=== PATIENT | male | born 1980 | race Caucasian/White ===

== ENCOUNTER 2017-04-03 20:31 | Emergency (ER) | payer SELFPAY ==
[~2017-04-03] VITALS: Ht 170.2 cm; Wt 118.0 kg
[~2017-04-03 20:31] MED LIST: GABAPENTIN600 MG PO; INDERAL 40MG TA40 MG PO; LISINOP/HCTZ1 TA2 PO; NAPROSYN500 MG PO
[2017-04-03 21:26] LABS: URINE BILIRUBIN - DIPSTICK NEGATIVE (NEGATIVE); URINE BLOOD DIPSTICK NEGATIVE (NEGATIVE); URINE CLARITY CLEAR; URINE COLOR YELLOW; URINE GLUCOSE - DIPSTICK NEGATIVE (NEGATIVE); URINE KETONE NEGATIVE (NEGATIVE); URINE LEUK ESTERASE NEGATIVE (NEGATIVE); URINE NITRITE - DIPSTICK NEGATIVE (Negative); URINE PH 5.5 (4.5-8.0); URINE PROTEIN - DIPSTICK TRACE mg/dL (NEG-TRACE); URINE SPECIFIC GRAVITY >=1.030; URINE UROBILINOGEN - DIPSTICK 0.2 E.U./dL (0.2)
[2017-04-03 21:27] LABS: HEMATOCRIT 47.6 % (39.0-50.0); IMMATURE GRANULOCYTES 0.5 % (0.0-1.0); MEAN CELL VOLUME 90.5 fL CALC (80.0-100.0); MEAN CORPUSCULAR HGB 30.4 pG CALC (26.0-32.0); MEAN CORPUSCULAR HGB CONC 33.6 g/L CALC (32.0-36.0); NEUT# 6.98 thou/uL (1.82-7.42); RED BLOOD COUNT 5.26 mill/uL (4.70-6.10); RED CELL DISTRI WIDTH 13.2 % (11.5-15.5)
[2017-04-03 22:02] LABS: ALBUMIN 4.1 g/dL (3.2-5.0); ALKALINE PHOSPHATASE 119 u/l (38-126); AMYLASE 33 u/l (30-110); ANION GAP 17 (6-22 (CALC)); BILIRUBIN, TOTAL 0.4 mg/dL (0.0-1.4); BUN 10 mg/dL (9-20); BUN/CREATININE RATIO 10 (12-20 (CALC)); CALCIUM 9.6 mg/dL (8.4-10.2); CARBON DIOXIDE 26 mmol/l (22-30); CHLORIDE 108 mmol/l (95-108); CREATININE 0.9 mg/dL (0.7-1.3); GFR > 60 ML/MIN (>=60 (CALC)); GFR FOR AFR.AMER. > 60 ML/MIN (>=60 (CALC)); GLUCOSE 77 mg/dL (75-110); LIPASE 82 u/l (23-300); POTASSIUM 3.8 mmol/l (3.5-5.1); SGOT/AST 27 u/l (17-59); SGPT/ALT 36 u/l (21-72); SODIUM 147 mmol/l (137-146); TOTAL PROTEIN 7.4 g/dL (6.3-8.2)
[2017-04-04] MEDS ORDERED: PERCOCET 5/325M1 TAB PO (00:12)
[2017-04-04 00:25] VITALS: BP 132/81
== END 2017-04-04 00:20 | disposition home or self-care (01) | DRG 694 ==
LOC: ED 20:31
PROVIDERS: Emergency Medicine
DX: N13.2 Hydronephrosis with renal and ureteral calculous obstruction (principal); R11.2 Nausea with vomiting, unspecified; R10.9 Unspecified abdominal pain; Z87.442 Personal history of urinary calculi

== ENCOUNTER 2017-05-12 12:31 | Observation (INO) | payer MEDICAID ==
[~2017-05-12] VITALS: Ht 170.2 cm; Wt 107.8 kg
[~2017-05-12 12:31] MED LIST changes: +PERCOCET 5/325M1 TAB PO
[2017-05-12 13:30] LABS: HEMATOCRIT 46.4 % (39.0-50.0); HEMOGLOBIN 15.9 g/dl (14.0-18.0); IMMATURE GRANULOCYTES 0.4 % (0.0-1.0); MEAN CELL VOLUME 87.7 fL CALC (80.0-100.0); MEAN CORPUSCULAR HGB 30.1 pG CALC (26.0-32.0); MEAN CORPUSCULAR HGB CONC 34.3 g/L CALC (32.0-36.0); NEUT# 7.97 thou/uL (1.82-7.42); RED BLOOD COUNT 5.29 mill/uL (4.70-6.10); RED CELL DISTRI WIDTH 12.6 % (11.5-15.5)
[2017-05-12 13:39] LABS: URINE BILIRUBIN - DIPSTICK NEGATIVE (NEGATIVE); URINE BLOOD DIPSTICK SMALL (NEGATIVE); URINE CLARITY CLEAR; URINE COLOR YELLOW; URINE GLUCOSE - DIPSTICK NEGATIVE (NEGATIVE); URINE KETONE NEGATIVE (NEGATIVE); URINE LEUK ESTERASE NEGATIVE (NEGATIVE); URINE NITRITE - DIPSTICK NEGATIVE (Negative); URINE PH 5.5 (4.5-8.0); URINE PROTEIN - DIPSTICK NEGATIVE (NEG-TRACE); URINE SPECIFIC GRAVITY 1.025; URINE UROBILINOGEN - DIPSTICK 0.2 E.U./dL (0.2)
[2017-05-12 13:46] LABS: ALBUMIN 4.4 g/dL (3.2-5.0); ALKALINE PHOSPHATASE 100 u/l (38-126); ANION GAP 16 (6-22 (CALC)); BILIRUBIN, TOTAL 0.5 mg/dL (0.0-1.4); BUN 14 mg/dL (9-20); BUN/CREATININE RATIO 16 (12-20 (CALC)); CALCIUM 9.4 mg/dL (8.4-10.2); CARBON DIOXIDE 24 mmol/l (22-30); CHLORIDE 108 mmol/l (95-108); CREATININE 0.9 mg/dL (0.7-1.3); GFR > 60 ML/MIN (>=60 (CALC)); GFR FOR AFR.AMER. > 60 ML/MIN (>=60 (CALC)); GLUCOSE 78 mg/dL (75-110); SGOT/AST 25 u/l (17-59); SGPT/ALT 39 u/l (21-72); SODIUM 145 mmol/l (137-146); TOTAL PROTEIN 7.2 g/dL (6.3-8.2)
[2017-05-12] MEDS ORDERED: TAMSULOSIN0.4 MG PO (14:16)
[2017-05-12] MEDS ORDERED: PERCOCET 5/325M1 TAB PO (14:16)
[2017-05-12] MEDS ORDERED: CIPROFLOXACN500 MG PO (14:16)
[2017-05-12 16:47] VITALS: BP 152/97
[2017-05-12 19:15] VITALS: BP 144/77
[2017-05-13 00:52] VITALS: BP 136/62
[2017-05-13 05:05] VITALS: BP 143/68
[2017-05-13 06:20] LABS: HEMATOCRIT 46.1 % (39.0-50.0); HEMOGLOBIN 15.1 g/dl (14.0-18.0); IMMATURE GRANULOCYTES 0.2 % (0.0-1.0); MEAN CELL VOLUME 91.7 fL CALC (80.0-100.0); MEAN CORPUSCULAR HGB CONC 32.8 g/L CALC (32.0-36.0); NEUT# 5.86 thou/uL (1.82-7.42); RED BLOOD COUNT 5.03 mill/uL (4.70-6.10); RED CELL DISTRI WIDTH 12.9 % (11.5-15.5)
[2017-05-13 06:35] LABS: ANION GAP 16 (6-22 (CALC)); BUN 13 mg/dL (9-20); BUN/CREATININE RATIO 16 (12-20 (CALC)); CALCIUM 8.8 mg/dL (8.4-10.2); CARBON DIOXIDE 23 mmol/l (22-30); CHLORIDE 109 mmol/l (95-108); CREATININE 0.8 mg/dL (0.7-1.3); GFR > 60 ML/MIN (>=60 (CALC)); GFR FOR AFR.AMER. > 60 ML/MIN (>=60 (CALC)); GLUCOSE 92 mg/dL (75-110); POTASSIUM 4.2 mmol/l (3.5-5.1); SODIUM 144 mmol/l (137-146)
[2017-05-13 08:21] VITALS: BP 117/77
[2017-05-13] MEDS ORDERED: KEFLEX500 M1 PO (12:07)
[2017-05-13] MEDS ORDERED: LORTAB 7.5-3251 TAB PO (12:07)
[2017-05-13] MEDS ORDERED: TAMSULOSIN HCL0.4 MG PO (12:07)
== END 2017-05-13 15:35 | disposition home or self-care (01) | DRG 694 ==
LOC: ENPENDDIS → ED 12:31 → ED-I 12:55 → ED 12:55 → ED-I 15:00 → ED 15:55 → MS2 15:56
PROVIDERS: Emergency Medicine; ADMIT Internal Medicine; ATTEND Internal Medicine
DX: N13.2 Hydronephrosis with renal and ureteral calculous obstruction (principal); I10 Essential (primary) hypertension; F17.210 Nicotine dependence, cigarettes, uncomplicated; Z87.442 Personal history of urinary calculi; Z88.8 Allergy status to other drugs, medicaments and biological substances
CPT/HCPCS: G0378

== ENCOUNTER 2018-02-21 13:26 | Emergency (ER) | payer OTHER ==
[~2018-02-21] VITALS: Ht 170.2 cm; Wt 110.0 kg
[~2018-02-21 13:26] MED LIST changes: +CIPROFLOXACN500 MG PO; +KEFLEX500 M1 PO; +LORTAB 7.5-3251 TAB PO; +TAMSULOSIN HCL0.4 MG PO; +TAMSULOSIN0.4 MG PO
[2018-02-21] MEDS ORDERED: ASPERCREME LIDOCA41 TOP (15:12)
[2018-02-21] MEDS ORDERED: CYCLOBENZAPR5 MG PO (15:12)
[2018-02-21] MEDS ORDERED: MOTRIN400 MG PO (15:12)
[2018-02-21 15:23] VITALS: BP 123/82
== END 2018-02-21 15:30 | disposition home or self-care (01) | DRG 552 ==
LOC: ED 13:26
DX: M54.2 Cervicalgia (principal); F17.210 Nicotine dependence, cigarettes, uncomplicated; I10 Essential (primary) hypertension

== ENCOUNTER 2018-11-20 17:26 | Emergency (ER) | payer OTHER ==
[~2018-11-20] VITALS: Ht 170.2 cm; Wt 100.0 kg
[~2018-11-20 17:26] MED LIST changes: +ASPERCREME LIDOCA41 TOP; +CYCLOBENZAPR5 MG PO; +MOTRIN400 MG PO
[2018-11-20] MEDS ORDERED: MIRTAZAPINE15 MG PO (18:08)
[2018-11-20] MEDS ORDERED: FIORICET PO (19:15)
[2018-11-20 19:35] VITALS: BP 131/74
== END 2018-11-20 19:35 | disposition home or self-care (01) ==
LOC: ED 17:26
DX: S16.1XXA Strain of muscle, fascia and tendon at neck level, initial encounter (principal); S09.90XA Unspecified injury of head, initial encounter; G43.909 Migraine, unspecified, not intractable, without status migrainosus; I10 Essential (primary) hypertension; F17.200 Nicotine dependence, unspecified, uncomplicated; W01.0XXA Fall on same level from slipping, tripping and stumbling without subsequent striking against object, initial encounter; Y93.89 Activity, other specified; Y92.69 Other specified industrial and construction area as the place of occurrence of the external cause

== ENCOUNTER 2019-09-28 23:20 | Emergency (ER) | payer OTHER ==
[~2019-09-28] VITALS: Ht 170.2 cm; Wt 111.0 kg
[~2019-09-28 23:20] MED LIST changes: +FIORICET PO; +MIRTAZAPINE15 MG PO
[2019-09-29 00:21] LABS: HEMATOCRIT 43.2 % (39.0-50.0); HEMOGLOBIN 14.8 g/dl (14.0-18.0); IMMATURE GRANULOCYTES 0.5 % (0.0-5.0); MEAN CELL VOLUME 89.1 fL CALC (80.0-100.0); MEAN CORPUSCULAR HGB 30.5 pG CALC (26.0-32.0); MEAN CORPUSCULAR HGB CONC 34.3 g/L CALC (32.0-36.0); NEUT# 7.1 thou/uL (1.82-7.42); RED BLOOD COUNT 4.85 mill/uL (4.70-6.10); RED CELL DISTRI WIDTH 12.6 % (11.5-15.5)
[2019-09-29 00:30] LABS: ALBUMIN 4.1 g/dL (3.2-5.0); ALKALINE PHOSPHATASE 111 u/l (38-126); AMYLASE 44 u/l (30-110); ANION GAP 14 (6-22 (CALC)); BILIRUBIN, TOTAL 0.3 mg/dL (0.0-1.4); BUN 17 mg/dL (9-20); BUN/CREATININE RATIO 16 (12-20 (CALC)); CARBON DIOXIDE 21 mmol/l (22-30); CHLORIDE 111 mmol/l (95-108); GFR > 60 ML/MIN (>=60 (CALC)); GFR FOR AFR.AMER. > 60 ML/MIN (>=60 (CALC)); LIPASE 143 u/l (23-300); POTASSIUM 3.6 mmol/l (3.5-5.1); PROTHROMBIN TIME 10.1 SECONDS (9.0-12.5); SGOT/AST 21 u/l (17-59); SODIUM 141 mmol/l (137-146); TOTAL PROTEIN 7.3 g/dL (6.3-8.2)
[2019-09-29] MEDS ORDERED: LORTAB 1010 MG PO (00:39)
[2019-09-29] MEDS ORDERED: LIDOCAINE HCL VIS2 % TP (00:39)
[2019-09-29] MEDS ORDERED: PREVACID30 M3 PO (00:39)
[2019-09-29 00:50] VITALS: BP 138/88
== END 2019-09-29 00:53 | disposition home or self-care (01) ==
LOC: ED 23:20
PROVIDERS: Emergency Medicine
DX: K64.9 Unspecified hemorrhoids (principal); I10 Essential (primary) hypertension; F17.210 Nicotine dependence, cigarettes, uncomplicated

== ENCOUNTER 2020-07-18 08:29 | Emergency (ER) | payer MEDICAID ==
[~2020-07-18] VITALS: Ht 170.2 cm; Wt 95.0 kg
[~2020-07-18 08:29] MED LIST changes: +LIDOCAINE HCL VIS2 % TP; +LORTAB 1010 MG PO; +PREVACID30 M3 PO
[2020-07-18] MEDS ORDERED: HYDROCO/APAP1 TA9 PO ×2 (10:15→10:17)
[2020-07-18 10:31] VITALS: BP 148/77
== END 2020-07-18 10:35 | disposition home or self-care (01) ==
LOC: ED 08:51
DX: S62.396A Other fracture of fifth metacarpal bone, right hand, initial encounter for closed fracture (principal); I10 Essential (primary) hypertension; F17.200 Nicotine dependence, unspecified, uncomplicated; W22.09XA Striking against other stationary object, initial encounter; Y92.009 Unspecified place in unspecified non-institutional (private) residence as the place of occurrence of the external cause